=== PATIENT | male | born 1995 | race Caucasian/White ===

== ENCOUNTER 2018-11-22 10:43 | Emergency (ER) | payer BC ==
--- NOTE | 2018-11-22 13:09 | EDPHYS ---
Physician Documentation [facility] Name: Lewis Franklin Age: 22 yrs Sex: Male : 1995 Arrival Date: 11/22/2018 Time: 10:47 Bed 25 Private MD: ED Physician Amando Church HPI: 11/22 12:55 This 22 yrs old Male presents to ER via Ambulatory with complaints of jr8 Vomiting/Diarrhea. 12:55 The patient presents to the emergency department with diarrhea, abdominal pain. Onset: jr8 The symptoms/episode began/occurred acutely, 6 day(s) ago. Possible causes: bad food exposure. The symptoms are aggravated by nothing. The symptoms are alleviated by nothing. Associated signs and symptoms: Pertinent positives: diarrhea, vomiting, cramping, Pertinent negatives: dysuria, fever. Severity of symptoms: At their worst the symptoms were mild in the emergency department the symptoms are unchanged. The patient has not experienced similar symptoms in the past. The patient has been recently seen by a physician: Dr. Bess on Monday, given cipro/flagyl, stool cultures. Diarrhea x 5 days with 2 episodes of vomiting - last episode yesterday. Patient was seen by Dr. Bess 3 days ago and had labs drawn, stool culture is pending, and he is now currently taking cipro/flagyl. Patient was sent here today by work due to continued diarrhea. Historical: - Allergies: 10:57 Latex, Natural Rubber; aa5 - Home Meds: 10:57 Flagyl Oral [Active]; Cipro Oral [Active]; aa5 - PMHx: 10:57 None; aa5 - PSHx: 10:57 None; aa5 - Immunization history:: Adult Immunizations up to date. - Social history:: Smoking status: Patient/guardian denies using tobacco. - Ebola Screening: : No symptoms or risks identified at this time. ROS: 12:55 Constitutional: Negative for fever, chills, and weight loss, Cardiovascular: Negative jr8 for chest pain, palpitations, and edema, Respiratory: Negative for shortness of breath, cough, wheezing, and pleuritic chest pain, Back: Negative for injury and pain, : Negative for injury, bleeding, discharge, and swelling, MS/Extremity: Negative for injury and deformity, Skin: Negative for injury, rash, and discoloration, Neuro: Negative for headache, weakness, numbness, tingling, and seizure. 12:55 Abdomen/GI: Positive for nausea, vomiting, diarrhea, abdominal cramps, Negative for abdominal pain, hematemesis, black/tarry stool. Exam: 12:55 Constitutional: This is a well developed, well nourished patient who is awake, alert, jr8 and in no acute distress. Head/Face: Normocephalic, atraumatic. Cardiovascular: Regular rate and rhythm with a normal S1 and S2. No gallops, murmurs, or rubs. Normal PMI, no JVD. No pulse deficits. Respiratory: Lungs have equal breath sounds bilaterally, clear to auscultation and percussion. No rales, rhonchi or wheezes noted. No increased work of breathing, no retractions or nasal flaring. Abdomen/GI: Soft, non-tender, with normal bowel sounds. No distension or tympany. No guarding or rebound. No evidence of tenderness throughout. Skin: Warm, dry with normal turgor. Normal color with no rashes, no lesions, and no evidence of cellulitis. MS/ Extremity: Pulses equal, no cyanosis. Neurovascular intact. Full, normal range of motion. Neuro: Awake and alert, GCS 15, oriented to person, place, time, and situation. Cranial nerves II-XII grossly intact. Motor strength 5/5 in all extremities. Sensory grossly intact. Cerebellar exam normal. Normal gait. Vital Signs: 10:57 BP 127 / 74; Pulse 86; Resp 16 S; Temp 97.7(TE); Pulse Ox 97% on R/A; Weight 127.01 kg aa5 (R); Height 5 ft. 6 in. (167.64 cm) (R); Pain 5/10; 12:19 BP 131 / 81; Pulse 90; Resp 17; Pulse Ox 99% on R/A; tw2 13:13 BP 127 / 81; Pulse 82; Resp 17; Pulse Ox 99% on R/A; tw2 10:57 Body Mass Index 45.19 (127.01 kg, 167.64 cm) aa5 MDM: 12:22 Patient medically screened. jr8 12:55 Differential diagnosis: Nonspecific abd pain, gastritis, appendicitis, diverticulitis, jr8 viral gastroenteritis, gastroenteritis. Data reviewed: vital signs, nurses notes, and as a result, I will discharge patient. Data interpreted: Pulse oximetry: on room air is 99 %. Interpretation: normal. Counseling: I had a detailed discussion with the patient and/or guardian regarding: the need for outpatient follow up, a family practitioner, a campus recruiting intern, to return to the emergency department if symptoms worsen or persist or if there are any questions or concerns that arise at home. ED course: Patient is currently being evaluated for diarrhea by Dr. Bess and is taking cipro/flagyl. Labs were normal per Dr. Bess, abdominal exam is benign with no indication for emergent process. He is requesting work note and nausea medication. Patient instructed to continue cipro/flagyl as prescribed, avoid alcohol, consume liquid/bland diet, follow up with Dr. Bess as scheduled and follow up with GI as needed. Patient verbalized understanding and is in agreement with the plan.. Administered Medications: No medications were administered Disposition: 14:21 Co-signature as Attending Physician, Amando Church MD I agree with the assessment and kdr plan of care. Disposition: 11/22/18 13:08 Discharged to Home. Impression: Diarrhea, unspecified, Vomiting. - Condition is Stable. - Discharge Instructions: Diarrhea, Adult. - Prescriptions for promethazine 25 mg Oral Tablet - take 1 tablet by ORAL route every 6 hours As needed; 20 tablet. - Medication Reconciliation Form, Thank You Letter, Antibiotic Education, Prescription Opioid Use, Work release form form. - Follow up: Private Physician; When: 2 - 3 days; Reason: Recheck today's complaints, Continuance of care, Re-evaluation by your physician. - Problem is an ongoing problem. - Symptoms have improved. Signatures: Amando Church MD MD [facility] Marcy Strong RN RN aa5 Kahlil Viera PA PA jr8 Alondra Carson, RN RN tw2 Corrections: (The following items were deleted from the chart) 13:15 13:08 11/22/2018 13:08 Discharged to Home. Impression: Diarrhea, unspecified; Vomiting. tw2 Condition is Stable. Forms are Work release form, Medication Reconciliation Form, Thank You Letter, Antibiotic Education, Prescription Opioid Use. Follow up: Private Physician; When: 2 - 3 days; Reason: Recheck today's complaints, Continuance of care, Re-evaluation by your physician. Problem is an ongoing problem. Symptoms have improved. jr8
--- NOTE | 2018-11-22 13:09 | ER ---
Nurse's Notes [facility] Name: Lewis Franklin Age: 22 yrs Sex: Male : 1995 Arrival Date: 11/22/2018 Time: 10:47 Bed 25 Private MD: Diagnosis: Diarrhea, unspecified;Vomiting Presentation: 11/22 10:54 Presenting complaint: Patient states: Nausea/vomiting/diarrhea and LUQ pain since aa5 Monday. Pt states "I saw my doctor on Monday and she gave me Flagyl and Cipro, did blood work, and collected a stool specimen". Transition of care: patient was not received from another setting of care. Onset of symptoms was October 2018. Risk Assessment: Do you want to hurt yourself or someone else? Patient reports no desire to harm self or others. Initial Sepsis Screen: Does the patient meet any 2 criteria? No. Patient's initial sepsis screen is negative. Does the patient have a suspected source of infection? No. Patient's initial sepsis screen is negative. Care prior to arrival: None. 10:54 Acuity: KATE 3 aa5 10:54 Method Of Arrival: Ambulatory aa5 Historical: - Allergies: 10:57 Latex, Natural Rubber; aa5 - Home Meds: 10:57 Flagyl Oral [Active]; Cipro Oral [Active]; aa5 - PMHx: 10:57 None; aa5 - PSHx: 10:57 None; aa5 - Immunization history:: Adult Immunizations up to date. - Social history:: Smoking status: Patient/guardian denies using tobacco. - Ebola Screening: : No symptoms or risks identified at this time. Screenin:24 Abuse screen: Denies threats or abuse. Nutritional screening: No deficits noted. tw2 Tuberculosis screening: No symptoms or risk factors identified. Fall Risk None identified. Assessment: 12:19 Reassessment: "it was either throw up at work or come here". General: Appears in no tw2 apparent distress. obese, Behavior is calm, cooperative, appropriate for age. Pain: Complains of pain in abdomen. Neuro: Level of Consciousness is awake, alert, obeys commands, Oriented to person, place, time, situation. Cardiovascular: Heart tones S1 S2 Patient's skin is warm and dry. Respiratory: Airway is patent Respiratory effort is even, unlabored, Respiratory pattern is regular, symmetrical, Breath sounds are clear bilaterally. GI: Abdomen is round non-distended, obese, Bowel sounds present X 4 quads. Reports nausea, vomiting. : No signs and/or symptoms were reported regarding the genitourinary system. EENT: No signs and/or symptoms were reported regarding the EENT system. Derm: No signs and/or symptoms reported regarding the dermatologic system. Musculoskeletal: Range of motion: intact in all extremities. 13:14 Reassessment: Patient appears in no apparent distress at this time. No changes from tw2 previously documented assessment. Patient and/or family updated on plan of care and expected duration. Pain level reassessed. Patient is alert, oriented x 3, equal unlabored respirations, skin warm/dry/pink. Vital Signs: 10:57 BP 127 / 74; Pulse 86; Resp 16 S; Temp 97.7(TE); Pulse Ox 97% on R/A; Weight 127.01 kg aa5 (R); Height 5 ft. 6 in. (167.64 cm) (R); Pain 5/10; 12:19 BP 131 / 81; Pulse 90; Resp 17; Pulse Ox 99% on R/A; tw2 13:13 BP 127 / 81; Pulse 82; Resp 17; Pulse Ox 99% on R/A; tw2 10:57 Body Mass Index 45.19 (127.01 kg, 167.64 cm) aa5 ED Course: 10:47 Patient arrived in ED. as 10:56 Triage completed. aa5 10:56 Arm band placed on. aa5 12:19 Alondra Carson RN is Primary Nurse. tw2 12:21 Kahlil Viera PA is PHCP. jr8 12:21 Amando Church MD is Attending Physician. jr8 12:23 Bed in low position. Call light in reach. Pulse ox on. NIBP on. tw2 13:14 No provider procedures requiring assistance completed. Patient did not have IV access tw2 during this emergency room visit. Administered Medications: No medications were administered Outcome: 13:08 Discharge ordered by . jr8 13:14 Discharged to home ambulatory. tw2 13:14 Condition: stable 13:14 Discharge instructions given to patient, Instructed on discharge instructions, follow up and referral plans. no drinking with medication, no driving heavy equipment, medication usage, Demonstrated understanding of instructions, follow-up care, medications, Prescriptions given X 1. 13:15 Patient left the ED. tw2 Signatures: Mary Hill Audri, RN RN aa5 Kahlil Viera PA PA jr8 Alondra Carson RN RN tw2
== END 2018-11-22 13:15 | disposition home or self-care (01) ==
LOC: ER 10:43
DX: R19.7 Diarrhea, unspecified (principal); R11.10 Vomiting, unspecified; R10.9 Unspecified abdominal pain; Z91.040 Latex allergy status
CPT/HCPCS: 99283

== ENCOUNTER 2024-02-19 10:14 | Emergency (ER) | payer BC ==
[2024-02-19 10:54] LABS: Absolute Eosinophils 0.2 K/uL (0-0.5); Absolute Lymphocytes (CBC) 2.1 K/uL (0.7-4.9); Absolute Monocytes 0.8 K/uL (0.1-1.3); Absolute Neutrophil 5.4 K/uL (1.8-8.0); Basophils % 0.5 % (0-1.3); Eosinophils % 1.9 % (0-4.4); Hematocrit 40.2 % (39.6-49.0); Hemoglobin 13.6 g/dL (13.6-17.9); Lymphocytes % 24.7 % (15.3-44.8); MCH 27.6 pg (27.0-35.0); MCHC 33.9 g/dL (32.0-36.0); MCV 81.6 fL (80-100); MPV 7.6 fL (7.6-11.3); Monocytes % 9.3 % (3.3-12.3); Neutrophils % 63.6 % (41.7-73.7); Platelets 329 thou/uL (152-406); RBC Red Blood Cell Count 4.93 M/uL (4.33-5.43); Red Cell Distribution Width 13.7 % (12.1-15.2)
--- NOTE | 2024-02-19 11:11 | RAD REPORT ---
EXAMINATION: CT ABDOMEN AND PELVIS WITH CONTRAST CLINICAL INDICATION: ABD PAIN TECHNIQUE: CT abdomen and pelvis was performed, after the administration of IV contrast, as per [facility] [place] protocol. Axial, sagittal and coronal reconstructions were obtained. One or more of the following dose reduction techniques were used: Automated exposure control, adjustment of the mA and k V according to patient size, and iterative reconstruction. Unless otherwise specified, incidental findings do not require dedicated imaging follow-up. COMPARISON: No prior exam. FINDINGS: LOWER CHEST: The visualized lung bases are clear. LIVER: Mild fatty liver is present. No focal lesion or biliary dilatation is seen. Grossly unremark able gallbladder. SPLEEN: Normal size. No focal lesion. PANCREAS: No mass, ductal dilation, or ivan-pancreatic fluid. ADRENALS: Normal; no mass. KIDNEYS: Normal size and contour. No hydronephrosis. GASTROINTESTINAL TRACT: No evidence of free air, significant intra-abdominal free fluid, bowel obstru ction or abscess. APPENDIX: Normal appendix. LYMPH NODES: No lymphadenopathy. MUSCULOSKELETAL: No acute or suspicious osseous abnormality. ADDITIONAL FINDINGS: None. IMPRESSION: No acute or concerning abnormalities seen in the abdomen or pelvis.
[2024-02-19 12:10] LABS: Albumin 3.3 g/dL (3.4-5.0); Albumin/Globulin Ratio 0.8 (1.1-1.8); Anion Gap 7.3 mEq/L (5.0-15.0); Bilirubin Total 0.4 mg/dL (0.2-1.0); Globulin 4.2 g/dL (2.3-3.5); Potassium 3.3 mEq/L (3.5-5.1); Protein, Total 7.5 g/dL (6.4-8.2)
--- NOTE | 2024-02-19 13:11 | ER ---
Nurse's Notes [facility] Name: Lewis Franklin Age: 28 yrs Sex: Male : 1995 Arrival Date: 02/19/2024 Time: 10:14 Bed 6 Private MD: Diagnosis: Abdominal pain, unspecified Presentation: 02/18 10:31 Chief complaint: Patient states: Abdominal pain onset Tommy. Pt also reports vomiting cm10 and diarrhea. Pt describes the pain as a dull throbbing pain. Pt states leaning back makes the pain feel better. Coronavirus screen: Client denies travel out of the [place] in the last 14 days. Ebola Screen: Patient denies travel to an Ebola-affected area in the 21 days before illness onset. No symptoms or risks identified at this time. Initial Sepsis Screen: Does the patient meet any 2 criteria? No. Patient's initial sepsis screen is negative. Does the patient have a suspected source of infection? No. Patient's initial sepsis screen is negative. Risk Assessment: Do you want to hurt yourself or someone else? Patient reports no desire to harm self or others. Onset of symptoms was February 16, 2024. 10:31 Method Of Arrival: Ambulatory cm10 10:31 Acuity: KATE 3 cm10 Triage Assessment: 10:33 General: Appears in no apparent distress. comfortable, Behavior is calm, cooperative. cm10 Pain: Complains of pain in abdomen Pain does not radiate. Pain currently is 5 out of 10 on a pain scale. Quality of pain is described as dull, sharp, throbbing, Pain began 2-3 days ago. Neuro: No deficits noted. Level of Consciousness is awake, alert, obeys commands, Oriented to person, place, time, situation, Appropriate for age. Respiratory: No deficits noted. Airway is patent Respiratory effort is even, unlabored, Respiratory pattern is regular, symmetrical. Historical: - Allergies: 10:33 Latex; cm10 - PMHx: 10:33 None; cm10 - PSHx: 10:33 None; cm10 - Immunization history:: Adult Immunizations up to date. - Infectious Disease History:: Denies. - Social history:: Smoking status: Patient denies any tobacco usage or history of. Screenin:47 [facility] ED Fall Risk Assessment (Adult) History of falling in the last 3 months, kc6 including since admission No falls in past 3 months (0 pts) Confusion or Disorientation No (0 pts) Intoxicated or Sedated No (0 pts) Impaired Gait No (0 pts) Mobility Assist Device Used No (0 pt) Altered Elimination No (0 pt) Score/Fall Risk Level 0 - 2 = Low Risk Oriented to surroundings. Abuse screen: Denies threats or abuse. Denies injuries from another. Nutritional screening: No deficits noted. Tuberculosis screening: No symptoms or risk factors identified. Assessment: 10:48 General: Appears in no apparent distress. comfortable, obese, well groomed, well kc6 developed, Behavior is calm, cooperative, appropriate for age. Pain: Complains of pain in abdomen Pain currently is 4 out of 10 on a pain scale. at worst was 6 out of 10 on a pain scale. Neuro: Level of Consciousness is awake, alert, obeys commands, Oriented to person, place, time, situation, Appropriate for age. Cardiovascular: Capillary refill < 3 seconds. Respiratory: Airway is patent Trachea midline Respiratory effort is even, unlabored, Respiratory pattern is regular, symmetrical. GI: Abdomen is round non-distended, obese, Reports diarrhea, nausea, vomiting. : No signs and/or symptoms were reported regarding the genitourinary system. EENT: No signs and/or symptoms were reported regarding the EENT system. Derm: No signs and/or symptoms reported regarding the dermatologic system. Skin is intact, is healthy with good turgor, Skin is pink, warm \T\ dry. Musculoskeletal: No signs and/or symptoms reported regarding the musculoskeletal system. Circulation, motion, and sensation intact. Capillary refill < 3 seconds, Range of motion: intact in all extremities. 11:55 Reassessment: Patient appears in no apparent distress at this time. No changes from kc6 previously documented assessment. Patient and/or family updated on plan of care and expected duration. Pain level reassessed. Patient is alert, oriented x 3, equal unlabored respirations, skin warm/dry/pink. 13:33 Reassessment: Patient appears in no apparent distress at this time. No changes from kc6 previously documented assessment. Patient and/or family updated on plan of care and expected duration. Pain level reassessed. Patient is alert, oriented x 3, equal unlabored respirations, skin warm/dry/pink. Vital Signs: 10:31 BP 149 / 84; Pulse 87; Resp 16; Temp 98.4; Pulse Ox 99% on R/A; Weight 131.8 kg; Height cm10 5 ft. 6 in. ; Pain 5/10; 13:00 BP 121 / 91; Pulse 88; Resp 18; Pulse Ox 96% on R/A; mb9 10:31 Body Mass Index 46.90 (131.80 kg, 167.64 cm) cm10 10:31 Pain Scale: Adult cm10 ED Course: 10:18 Patient arrived in ED. im 10:30 Ryan Hassan DO is Attending Physician. ms3 10:33 Triage completed. cm10 10:34 Arm band placed on right wrist. Patient placed in an exam room, on a stretcher. cm10 10:39 Anne-Marie Daily, ELIJAH is Primary Nurse. mb9 10:39 Initial lab(s) drawn, by ky, sent to lab. Inserted saline lock: 20 gauge in right cm10 antecubital area, using aseptic technique. Blood collected. Flushed with 10 mL NS. 10:47 Primary Nurse role handed off by Anne-Marie Daily, ELIJAH kc6 10:47 Rachel Pop, ELIJAH is Primary Nurse. kc6 10:47 Patient has correct armband on for positive identification. Bed in low position. Call kc6 light in reach. Side rails up X 1. Pulse ox on. NIBP on. Door closed. Noise minimized. Lights dimmed. Pillow given. 10:47 Patient maintains SpO2 saturation greater than 95% on room air. kc6 11:08 CT Abd/Pelvis - IV Contrast Only In Process Unspecified. EDMS 13:10 Devante Schwartz DO is Referral Physician. ms3 13:33 No provider procedures requiring assistance completed. IV discontinued, intact, kc6 bleeding controlled, No redness/swelling at site. Pressure dressing applied. Administered Medications: 13:33 Drug: Potassium Chloride PO 40 mEq PO once Route: PO; kc6 Medication: 13:34 VIS not applicable for this client. kc6 Outcome: 13:10 Discharge ordered by . ms3 13:33 Discharged to home ambulatory, kc6 13:33 Condition: good 13:33 Discharge instructions given to patient, Instructed on discharge instructions, follow up and referral plans. medication usage, Demonstrated understanding of instructions, follow-up care, medications, Prescriptions given X 1, 13:34 Patient left the ED. kc6 Signatures: Dispatcher [employer] EDMS Ryan Hassan DO DO ms3 Rachel Pop RN RN kc6 Killian, Anne-Marie Posada, RN RN mb9 Klaudia Hart Clarissa RN RN cm10
--- NOTE | 2024-02-19 13:11 | EDPHYS ---
Physician Documentation [facility] Name: Lewis Franklin Age: 28 yrs Sex: Male : 1995 Arrival Date: 02/19/2024 Time: 10:14 Bed 6 Private MD: ED Physician Ryan Hassan HPI: 02/18 11:39 This 28 yrs old Male presents to ER via Ambulatory with complaints of ms3 Nausea/Vomiting/Diarrhea, Abdominal Pain. 11:39 28-year-old male with no past medical history presents to the emergency department for ms3 epigastric abdominal pain that began on Monday. Patient states symptoms subsided and began again this morning. He rates his discomfort a 5/10 and describes it as throbbing/sharp. Patient states the pain is better after bowel movement. Patient endorses diarrhea.. Historical: - Allergies: 10:33 Latex; cm10 - PMHx: 10:33 None; cm10 - PSHx: 10:33 None; cm10 - Immunization history:: Adult Immunizations up to date. - Infectious Disease History:: Denies. - Social history:: Smoking status: Patient denies any tobacco usage or history of. ROS: 11:39 Constitutional: Negative for fever, and chills. Cardiovascular: Negative for chest ms3 pain, and palpitations. Respiratory: Negative for shortness of breath, cough, wheezing, and pleuritic chest pain, MS/Extremity: Negative for injury and deformity, Skin: Negative for injury, rash, and discoloration, 11:39 Abdomen/GI: Positive for abdominal pain, diarrhea, Exam: 11:39 Constitutional: This is a well developed, well nourished patient who is awake, alert, ms3 and in no acute distress. Neck: Trachea midline, no cervical lymphadenopathy. Supple, full range of motion without nuchal rigidity, or vertebral point tenderness. No Meningismus. Chest/axilla: Normal chest wall appearance and motion. Nontender with no deformity. Cardiovascular: Regular rate and rhythm with a normal S1 and S2. No gallops, murmurs, or rubs. Normal PMI, no JVD. No pulse deficits. Respiratory: Lungs have equal breath sounds bilaterally, clear to auscultation and percussion. No rales, rhonchi or wheezes noted. No increased work of breathing, no retractions or nasal flaring. 11:39 Abdomen/GI: Inspection: abdomen appears normal, Bowel sounds: normal, Palpation: mild abdominal tenderness, in the epigastric area, Vital Signs: 10:31 BP 149 / 84; Pulse 87; Resp 16; Temp 98.4; Pulse Ox 99% on R/A; Weight 131.8 kg; Height cm10 5 ft. 6 in. ; Pain 5/10; 13:00 BP 121 / 91; Pulse 88; Resp 18; Pulse Ox 96% on R/A; mb9 10:31 Body Mass Index 46.90 (131.80 kg, 167.64 cm) cm10 10:31 Pain Scale: Adult cm10 MDM: 10:39 Medical Screening Exam initiated ms3 18:52 Differential diagnosis: Nonspecific abd pain, gastritis, appendicitis, diverticulitis. ms3 Data reviewed: vital signs, nurses notes, lab test result(s), radiologic studies, and as a result, I will discharge patient. I considered the following discharge prescriptions or medication management in the emergency department Medications were administered in the Emergency Department. See MAR. Counseling: I had a detailed discussion with the patient and/or guardian regarding the historical points, exam findings, and any diagnostic results supporting the discharge/admit diagnosis, lab results, radiology results, the need for outpatient follow up, to return to the emergency department if symptoms worsen or persist or if there are any questions or concerns that arise at home. Special discussion: Based on the patient's Hx, exam, and Dx evaluation, there is no indication for emergent surgery or inpatient Tx. It is understood by the patient/guardian that if the Sx's persist or worsen they need to return immediately for re-evaluation. ED course: Discussed labs and imaging with patient. Patient to follow-up with primary care physician in 2 to 3 days. All questions were answered. Return precautions discussed include worsening symptoms, or any other concerns. On reevaluation patient symptoms improved, patient is alert and oriented x 4, no apparent distress, nontoxic-appearing, ambulatory in the emergency department. 02/18 10:39 Order name: CBC with Diff; Complete Time: 11:39 ms3 02/18 10:39 Order name: CMP; Complete Time: 12:45 ms3 02/18 10:39 Order name: Lipase; Complete Time: 12:45 ms3 02/18 10:39 Order name: CT Abd/Pelvis - IV Contrast Only; Complete Time: 11:39 ms3 02/18 10:39 Order name: IV Saline Lock; Complete Time: 10:46 ms3 02/18 10:39 Order name: Labs collected and sent; Complete Time: 10:46 ms3 02/18 11:35 Order name: Labs - recollect needed: recollect green top; Complete Time: 11:42 bd Administered Medications: 13:33 Drug: Potassium Chloride PO 40 mEq PO once Route: PO; [id number] Disposition: 18:59 Chart complete. ms3 Disposition Summary: 02/19/24 13:10 Discharge Ordered Notes: Location: Home ms3 Condition: Stable ms3 Diagnosis - Abdominal pain, unspecified ms3 Followup: ms3 - With: Devante Schwartz DO - When: 2 - 3 days - Reason: Recheck today's complaints Discharge Instructions: - Discharge Summary Sheet ms3 - Abdominal Pain, Adult ms3 Forms: - Medication Reconciliation Form ms3 - Antibiotic Education ms3 - Prescription Opioid Use ms3 - Patient Portal Instructions ms3 - Leadership Thank You Letter ms3 Prescriptions: - Pepcid 20 mg Oral Tablet - take 1 tablet ORAL route every 12 hours for 10 days; 20 tablet; Refills: 0, ms3 Product Selection Permitted Signatures: Dispatcher [employer] EDPatti Valdes Marcus, DO DO ms3 Rachel Pop, RN RN kc6 Georgie Hill RN RN cm10
[2024-02-19] MEDS ORDERED: POTASSIUM CL SA 10 MEQ TAB PO ONE (13:26)
[2024-02-19 13:50] VITALS: TEMP 98.4
[2024-02-19 13:56] VITALS: BP 121/91; O2SAT 96
== END 2024-02-19 13:34 | disposition home or self-care (01) ==
LOC: ER 10:14
DX: R10.13 Epigastric pain (principal); R11.2 Nausea with vomiting, unspecified; R19.7 Diarrhea, unspecified
CPT/HCPCS: 85025; 36415; 83690; 80053; 74177; Q9967; 99284